=== PATIENT | female | born 1965 | race Caucasian/White ===

== ENCOUNTER → 2016-08-10 | Outpatient (CLI) | payer BC ==
[2013-09-13 06:31] VITALS: BP 109/67
[~2016-08-10] MED LIST: DURAGESIC50 MCG/PAT TD; LIORESAL 1010 MG/TAB PO; NORCO 325 MG-7.1 TA1 PO; ONDANSETRON4 M1 PO; TORADOL 10MG TA10 MG PO; ZOVIRAX400 M1 PO
== END ==
LOC: LAB 10:44
DX: M54.5 Low back pain (principal); R53.81 Other malaise; F33.8 Other recurrent depressive disorders; N30.00 Acute cystitis without hematuria

== ENCOUNTER → 2016-09-30 | Outpatient (CLI) | payer BC ==
[2013-09-13 06:31] VITALS: BP 109/67
== END ==
LOC: LAB 10:04
DX: R53.81 Other malaise (principal)

== ENCOUNTER → 2017-01-07 | Outpatient (CLI) | payer BC ==
[2013-09-13 06:31] VITALS: BP 109/67
== END ==
LOC: LAB 11:19
DX: R10.13 Epigastric pain (principal); R10.84 Generalized abdominal pain

== ENCOUNTER → 2017-01-08 | Outpatient (CLI) | payer BC ==
[2013-09-13 06:31] VITALS: BP 109/67
== END ==
LOC: LAB 07:40
DX: R10.13 Epigastric pain (principal); R10.84 Generalized abdominal pain

== ENCOUNTER → 2018-08-25 | Outpatient (CLI) | payer BC ==
[2013-09-13 06:31] VITALS: BP 109/67
[2018-08-25 15:49] LABS: URINE APPEARANCE CLEAR; URINE BILIRUBIN NEGATIVE (NEGATIVE); URINE BLOOD NEGATIVE (NEGATIVE); URINE COLOR YELLOW; URINE GLUCOSE NEGATIVE (NEGATIVE); URINE KETONE NEGATIVE (NEGATIVE); URINE LEUKOCYTE ESTERASE 1+ (NEGATIVE); URINE NITRATE NEGATIVE (NEGATIVE); URINE PROTEIN(semi-quant) TRACE mg/dL (NEGATIVE); URINE UROBILINOGEN NORMAL (NORMAL)
== END ==
LOC: LAB 13:53
PROVIDERS: Physician Assistant
DX: R30.0 Dysuria (principal)

== ENCOUNTER 2018-11-04 13:13 | Emergency (ER) | payer BC ==
[~2018-11-04] VITALS: Ht 162.6 cm; Wt 61.4 kg
[2018-11-04 13:53] LABS: EOS # 0.5 (0.04-0.40); HEMOGLOBIN 14.9 g/dL (12.5-16.0); LYMPH# 2.6 (1.50-4.00); MEAN CELL VOLUME 94 fl (78-100); MEAN CORPUSCULAR HEMOGLOBIN 31 pg (27-31); MEAN CORPUSCULAR HGB CONC 33 g/dL (33-37); MONO # 0.6 (0.20-0.80); NEU # 5.6 (1.40-6.50); PLATELET COUNT 239 K/mm3 (130-400); RED BLOOD COUNT 4.78 M/mm3 (4.10-5.30); RED CELL DISTRIBUTION WIDTH 13.4 % (11.5-14.5); WHITE BLOOD COUNT 9.3 K/mm3 (4.8-10.8)
[2018-11-04] MEDS ORDERED: PREDNISONE10 MG PO (16:29)
[2018-11-04 16:31] VITALS: BP 120/78
== END 2018-11-04 16:44 | disposition home or self-care (01) ==
LOC: ED 13:13
PROVIDERS: Nurse Practitioner
DX: S60.561A Insect bite (nonvenomous) of right hand, initial encounter (principal); S50.861A Insect bite (nonvenomous) of right forearm, initial encounter; Z23 Encounter for immunization; Z90.710 Acquired absence of both cervix and uterus; W57.XXXA Bitten or stung by nonvenomous insect and other nonvenomous arthropods, initial encounter
CPT/HCPCS: 90715; J1200; J2930; J3490

== ENCOUNTER → 2020-05-25 | Outpatient (CLI) | payer BC ==
[~2020-05-25] MED LIST changes: +PREDNISONE10 MG PO
== END ==
LOC: LAB 09:21
DX: N30.00 Acute cystitis without hematuria (principal)

== ENCOUNTER → 2021-08-09 | Outpatient (CLI) | payer BC | LOC: LAB 08:37 | DX: Z11.52 Encounter for screening for COVID-19 (principal); Z20.822 Contact with and (suspected) exposure to COVID-19 ==

== ENCOUNTER → 2022-02-09 | Outpatient (CLI) | payer BC | LOC: LAB 08:00 → EDSTATUS 15:49 | DX: D17.24 Benign lipomatous neoplasm of skin and subcutaneous tissue of left leg (principal) ==

== ENCOUNTER → 2023-07-13 | Outpatient (CLI) | payer OTHER, BC | LOC: RAD 10:15 | DX: M47.816 Spondylosis without myelopathy or radiculopathy, lumbar region (principal); M48.061 Spinal stenosis, lumbar region without neurogenic claudication; M51.36 Other intervertebral disc degeneration, lumbar region; S32.009S Unspecified fracture of unspecified lumbar vertebra, sequela ==

== ENCOUNTER → 2023-08-24 | Day surgery (SDC) | payer OTHER, BC ==
[~2023-08-24] MED LIST changes: +Iohexol 300 - 10 ML VIAL IV ONE; +Lidocaine PF 2% (20 MG/ML) 2 ML VIAL IJ ONE
== END | disposition home or self-care (01) ==
LOC: MSO 12:52
DX: M47.896 Other spondylosis, lumbar region (principal); M54.17 Radiculopathy, lumbosacral region; M51.36 Other intervertebral disc degeneration, lumbar region; M46.1 Sacroiliitis, not elsewhere classified
CPT/HCPCS: J1100; Q9967

== ENCOUNTER → 2023-09-21 | Day surgery (SDC) | payer OTHER, BC ==
[~2023-09-21] MED LIST changes: -Iohexol 300 - 10 ML VIAL IV ONE; -Lidocaine PF 2% (20 MG/ML) 2 ML VIAL IJ ONE
== END ==
LOC: MSO 12:47
DX: M47.817 Spondylosis without myelopathy or radiculopathy, lumbosacral region (principal); M54.50 Low back pain, unspecified
CPT/HCPCS: J0665

== ENCOUNTER → 2023-10-19 | Day surgery (SDC) | payer OTHER, BC | LOC: MSO 11:48 | DX: M47.817 Spondylosis without myelopathy or radiculopathy, lumbosacral region (principal); M54.50 Low back pain, unspecified | CPT/HCPCS: J0665 ==